=== PATIENT | female | born 1975 | race African-American/Black ===

== ENCOUNTER 2017-09-19 15:20 | Inpatient (IN) | payer OTHER ==
[2017-09-19 17:22] VITALS: BMI 20.7
--- NOTE | 2017-09-19 19:07 | HP ---
Screened but not Admitted - Documentation of Visit Screened but not Admitted: Yes Level of Care Recommended at this Time: ER Evaluation/Care Additional Information/Explanation: Patient has signs of necrosis/ frostbites on the rigth index and middle finger. Patient was send to [facility] for futher evaluation report given to Dr. Howell.
--- NOTE | 2017-09-20 00:24 | HP ---
Admission ROS [facility] Chief Complaint: Seeking admission to rehab Allergies/Adverse Reactions: Allergies Allergy/AdvReac Type Severity Reaction Status Date / Time No Known Allergies Allergy Verified 09/19/17 19:03 History of Present Illness: 42 years cocaine dependence is admitted to rehab. Patient has been in previous rehab at [facility]. She was earlier sent to [facility] ER with complaint of olsen bite to right 2nd and 3rd finger. Her right 2nd finger had necrosis extending to DIP joint with eschar at fingertip and the 3rd right digit is necrotic dry gangrene involving the PIP. Patient was seen at [facility] where they told her to return for possibly finger amputation. Patient denies past medical history and suicidal ideation at this time. Exam Limitations: Physical Impairment (right 2nd and 3rd finger frostbite) - Ebola screening Have you traveled outside of the country in the last 21 days: No (N) Have you had contact with anyone from an Ebola affected area: No Have you been sick,other than usual withdrawal symptoms: No Do you have a fever: No - Review of Systems Constitutional: No Symptoms Reported EENT: reports: No Symptoms Reported Respiratory: reports: No Symptoms reported Cardiac: reports: No Symptoms Reported GI: reports: No Symptoms Reported : reports: No Symptoms Reported Musculoskeletal: reports: No Symptoms Reported Integumentary: reports: No Symptoms Reported Neuro: reports: No Symptoms reported Endocrine: reports: No Symptoms Reported Hematology: reports: No Symptoms Reported Psychiatric: reports: Anxious Other Systems: Reviewed and Negative Patient History - Patient Medical History Hx Anemia: No Hx Asthma: No Hx Chronic Obstructive Pulmonary Disease (COPD): No Hx Cancer: No Hx Cardiac Disorders: No Hx Congestive Heart Failure: No Hx Hypertension: No Hx Hypercholesterolemia: No Hx Pacemaker: No HX Cerebrovascular Accident: No Hx Seizures: No Hx Dementia: No Hx Diabetes: No Hx Gastrointestinal Disorders: No Hx Liver Disease: No Hx Genitourinary Disorders: No Hx Sexually Transmitted Disorders: No Hx Renal Disease (ESRD): No Hx Thyroid Disease: No Hx Human Immunodeficiency Virus (HIV): No (Negative 2017) Hx Hepatitis C: No Hx Depression: No Hx Suicide Attempt: No (Denies suicidal ideation at this time) Hx Bipolar Disorder: No Hx Schizophrenia: Yes - Patient Surgical History Past Surgical History: No - PPD History Previous Implant?: Yes Documented Results: Negative w/o proof Implanted On Prior [facility] Admission?: No PPD to be Administered?: Yes - Reproductive History Patient is a Female of Child Bearing Age (11 -55 yrs old): Yes LMP comment: Patient states she cannot remember the date Patient : No - Smoking Cessation Smoking history: Current every day smoker Have you smoked in the past 12 months: Yes Aproximately how many cigarettes per day: 20 Hx Chewing Tobacco Use: No Initiated information on smoking cessation: Yes 'Breaking Loose' booklet given: 09/20/17 - Substances Abused Crack Route: Smoking Frequency: Daily Amount used: $700 Age of first use: 16 Date of Last Use: 09/18/17 Family Disease History - Family Disease History Family History: Denies Admission Physical Exam [facility] - Vital Signs Vital Signs: Vital Signs - 24 hr 09/19/17 17:16 Temperature 97.7 F Pulse Rate 108 H Respiratory 18 Rate Blood Pressure 124/92 - Physical General Appearance: Yes: Disheveled, Anxious HEENTM: Yes: EOMI, Normal ENT Inspection, Normal Voice, Other (missing upper teeth) Respiratory: Yes: Lungs Clear, Normal Breath Sounds, No Respiratory Distress Neck: Yes: Supple Breast: Yes: Breast Exam Deferred Cardiology: Yes: Regular Rhythm, Regular Rate, S1, S2 Abdominal: Yes: Normal Bowel Sounds, Soft Genitourinary: Yes: Within Normal Limits Back: Yes: Normal Inspection Musculoskeletal: Yes: Within Normal Limits Extremities: Yes: Delayed Capillary Refill, Other (olsen bite to right 2nd and 3rd digits) Neurological: Yes: Alert, Normal Mood/Affect, Normal Response Integumentary: Yes: Dry Lymphatic: Yes: Within Normal Limits - Diagnostic (1) Cocaine dependence, uncomplicated Current Visit: Yes Status: Chronic (2) Sedative, hypnotic or anxiolytic dependence with withdrawal, uncomplicated Current Visit: Yes Status: Chronic (3) Frostbite Current Visit: Yes Status: Chronic Qualifiers: Encounter type: subsequent encounter Qualified Code(s): T33.90XD - Superficial frostbite of unspecified sites, subsequent encounter Cleared for Admission [facility] - Detox or Rehab [facility] Level of Care: Observation Bed Claeared for Rehab Admission: Yes [facility] Breath Alcohol Content Breath Alcohol Content: 0 Urine Pregancy Test - Result Urine Test Results: Negative- NO Line Present Urine Drug Screen - Results Drug Screen Negative: No Urine Drug Screen Results: [place]IRAG-Cocaine, TCA-Tricyclic Antidepress Inpatient Rehab Admission - Initial Determination Are CD services needed?: Yes Free of communicable disease: Yes Not in need of hospitalization: Yes - Rehab Admission Criteria Previous failed treatment: Yes Poor recovery environment: Yes Comorbidities: Yes Lacks judgement: No Patient is meeting Inpatient Rehab admission criteria:: Yes
[2017-09-20] MEDS ORDERED: ACETAMINOPHEN 325 MG TABLET (FP) PO PRN (00:35)
[2017-09-20] MEDS ORDERED: LOPERAMIDE HCL 2 MG CAPSULE PO PRN (00:35)
[2017-09-20] MEDS ORDERED: guaiFENesin/D-METHORPHAN HB 10 ML UNIT-DOSE CUPS PO PRN (00:35)
[2017-09-20] MEDS ORDERED: MAGNESIUM CITRATE 300 ML BOTTLE PO PRN (00:35)
[2017-09-20] MEDS ORDERED: MAG HYDROX/AL HYDROX/SIMETH 30 ML UNIT-DOSE CUP PO PRN (00:35)
[2017-09-20] MEDS ORDERED: IBUPROFEN 400 MG TABLET (FP) PO PRN (00:35)
[2017-09-20] MEDS ORDERED: NICOTINE POLACRILEX 2 MG GUM BC PRN (00:35)
[2017-09-20] MEDS ORDERED: MENTHOL/PHENOL 1 EACH UD MM PRN (00:35)
[2017-09-20] MEDS ORDERED: P-EPHED 60MG/TRIPROLIDI 2.5MG TABLET PO PRN (00:35)
[2017-09-20] MEDS ORDERED: MAGNESIUM HYDROX 2400MG/30ML ORAL SUSPENSION 30 ML CUP PO PRN (00:35)
[2017-09-20] MEDS ORDERED: TUBERCULIN PPD 5 TU/0.1ML VIAL ID ONE (02:16)
--- NOTE | 2017-09-20 09:07 | EKG ---
Test Reason : Blood Pressure : / mmHG Vent. Rate : 087 BPM Atrial Rate : 087 BPM P-R Int : 164 ms QRS Dur : 092 ms QT Int : 374 ms P-R-T Axes : 076 072 061 degrees QTc Int : 450 ms NORMAL SINUS RHYTHM NORMAL ECG NO PREVIOUS ECGS AVAILABLE Confirmed by Shaan Garcia ([id number]) on 09/20/2017 9:06:46 AM Referred By: Confirmed By:Shaan Garcia
[2017-09-20] MEDS ORDERED: PT OWN MED DRAWER 7, Y5N ONE (09:38)
[2017-09-20] MEDS: PRENATAL VITAMINS W/ FOLIC ACID TABLET (FP) PO SCH (09:49)
[2017-09-20] MEDS: NICOTINE 14 MG/24 HOURS TOPICAL PATCH TD SCH (09:50)
[2017-09-20] MEDS ORDERED: BACITRACIN 15 GM TUBE TOPICAL OINTMENT TP SCH (10:00)
[2017-09-20] MEDS ORDERED: BACITRACIN 0.9 GM PACKET TP SCH (10:00)
--- NOTE | 2017-09-20 12:55 | PN ---
[facility] Progress Note (SOAP) Subjective: aaox3 right hand two digits are nacrotic and foul smelling however wound appears non purulent with clear serous sanguineous Objective: 09/20/17 12:53 labs ordered Assessment: 09/20/17 12:53 aaox3 no distress no c/o pain pt agreed to new wound care dressing, and labs ordered and pt complied with the need for blood drawn. pt agreed to unit rules. Plan: will follow up with care.
[2017-09-20] MEDS ORDERED: SILVER SULFADIAZINE 1% TOP CREAM 400 GM JAR TP SCH (13:00)
[2017-09-20] MEDS: SULFAMETHOXAZOLE/TRIMETHOPRIM 800MG/160MG D.S. TABLET PO SCH ×2 (13:15→21:15)
[2017-09-20] MEDS: SILVER SULFADIAZINE 1% TOP CREAM 50 GM JAR TP SCH (14:05)
[2017-09-20 14:23] LABS: BASO % 0.6 % (0-2.0); EOS % 3.9 % (0-4.5); HEMATOCRIT 31.8 % (32.4-45.2); HEMOGLOBIN 9.8 GM/dL (10.7-15.3); MCH 22.9 pg (25.7-33.7); MCHC 30.8 g/dl (32.0-36.0); MEAN CELL VOLUME 74.4 fl (80-96); MEAN PLT VOLUME 9.3 fl (7.5-11.1); MONO % 16.4 % (3.8-10.2); NEUT % 52.1 % (42.8-82.8); PLATELET COUNT 252 K/MM3 (134-434); RBC 4.27 M/mm3 (3.60-5.2); RDW 14.6 % (11.6-15.6); WHITE BLOOD COUNT 7.2 K/mm3 (4.0-10.0)
[2017-09-20 14:50] LABS: ANION GAP 6 (8-16); BLOOD UREA NITROGEN 12 mg/dL (7-18); CALCIUM 8.9 mg/dL (8.5-10.1); CHLORIDE 105 mmol/L (98-107); CO2 33 mmol/L (21-32); CREATININE 0.7 mg/dL (0.55-1.02); GLUCOSE,RANDOM 109 mg/dL (74-106); POTASSIUM 4.4 mmol/L (3.5-5.1); SGOT/AST 19 U/L (15-37); SGPT/ALT 20 U/L (12-78); SODIUM 144 mmol/L (136-145)
[2017-09-20 14:52] LABS: ALK PHOS 56 U/L (45-117); BILIRUBIN,TOTAL 0.3 mg/dL (0.2-1.0); TOT PROT 6.8 g/dl (6.4-8.2)
[2017-09-20 17:06] LABS: URINE APPEARANCE CLEAR; URINE BILIRUBIN NEGATIVE (NEGATIVE); URINE BLOOD NEGATIVE (NEGATIVE); URINE COLOR YELLOW; URINE GLUCOSE (UA) NEGATIVE (NEGATIVE); URINE KETONE NEGATIVE (NEGATIVE); URINE LEUK ESTERASE NEGATIVE (NEGATIVE); URINE NITRITE NEGATIVE (NEGATIVE); URINE PROTEIN NEGATIVE (NEGATIVE); URINE UROBILINOGEN NEGATIVE mg/dL (0.2-1.0)
[2017-09-20 17:39] LABS: SICKLE CELL SCREEN NEGATIVE (NEGATIVE)
[2017-09-20] MEDS ORDERED: THIAMINE HCL 100 MG TABLET (FP) PO SCH (22:00)
[2017-09-21] MEDS: SULFAMETHOXAZOLE/TRIMETHOPRIM 800MG/160MG D.S. TABLET PO SCH (10:13)
[2017-09-21] MEDS: PRENATAL VITAMINS W/ FOLIC ACID TABLET (FP) PO SCH (10:13)
[2017-09-21] MEDS: NICOTINE 14 MG/24 HOURS TOPICAL PATCH TD SCH (10:14)
[2017-09-21] MEDS: SILVER SULFADIAZINE 1% TOP CREAM 50 GM JAR TP SCH (10:14)
--- NOTE | 2017-09-21 10:19 | PN ---
[facility] Progress Note (SOAP) Subjective: pt c/o of her necrotic finger is slothing off and detaching itself. Objective: 09/21/17 10:17 Laboratory Tests 09/20/17 09/20/17 09/20/17 11:55 11:55 11:55 WBC 7.2 RBC 4.27 Hgb 9.8 L Hct 31.8 L MCV 74.4 L MCH 22.9 L MCHC 30.8 L RDW 14.6 Plt Count 252 MPV 9.3 Neutrophils % 52.1 Lymphocytes % 27.0 Monocytes % 16.4 H Eosinophils % 3.9 Basophils % 0.6 Sickle Cell Screen Negative Sodium 144 Potassium 4.4 Chloride 105 Carbon Dioxide 33 H Anion Gap 6 L BUN 12 Creatinine 0.7 Creat Clearance w eGFR > 60 Random Glucose 109 H Calcium 8.9 Total Bilirubin 0.3 AST 19 ALT 20 Alkaline Phosphatase 56 Total Protein 6.8 Albumin 3.0 L Urine Color Urine Appearance Urine pH Ur Specific [place] Urine Protein Urine Glucose (UA) Urine Ketones Urine Blood Urine Nitrite Urine Bilirubin Urine Urobilinogen Ur Leukocyte Esterase RPR Titer Hepatitis C Antibody <0.1 HIV 1&2 Antibody Screen HIV P24 Antigen 09/20/17 09/20/17 09/20/17 11:55 11:55 13:15 WBC RBC Hgb Hct MCV MCH MCHC RDW Plt Count MPV Neutrophils % Lymphocytes % Monocytes % Eosinophils % Basophils % Sickle Cell Screen Sodium Potassium Chloride Carbon Dioxide Anion Gap BUN Creatinine Creat Clearance w eGFR Random Glucose Calcium Total Bilirubin AST ALT Alkaline Phosphatase Total Protein Albumin Urine Color Yellow Urine Appearance Clear Urine pH 6.0 Ur Specific [place] 1.020 Urine Protein Negative Urine Glucose (UA) Negative Urine Ketones Negative Urine Blood Negative Urine Nitrite Negative Urine Bilirubin Negative Urine Urobilinogen Negative Ur Leukocyte Esterase Negative RPR Titer Nonreactive Hepatitis C Antibody HIV 1&2 Antibody Screen Negative HIV P24 Antigen Negative aaox3 ambulating no acute distress Assessment: 09/21/17 10:17 necrotic finger is slothing off, pt c/o of no pain. pt has agreed to go to [place] ED for evaluation and possible surgical removal of digit. Plan: report given to MEGAN Cunningham and will accept pt for evaluation of necrotic digit.
[2017-09-21 10:54] VITALS: BP 111/67; PULSE 84; TEMP 98.2
--- NOTE | 2017-09-21 13:27 | PN ---
[facility] Progress Note Note: Patient was transferred to ER of [facility] after being evaluated by Ryne Escobra NP due to R index gangrene for further stabilization,surgical intervention.See staff notes for details.
--- NOTE | 2017-09-21 14:18 | CONSULT ---
Consult Consult Specialty:: hand surgery Referred by:: porfirio GUZMAN - ED Reason for Consultation:: right hand multifinger gangrene - History of Present Illness Chief Complaint: right hand fingers frostbite History of Present Illness: 42yo RHD female with PMH cocaine abuse presents to ED 4 days after her admission to rehab. She was previous rehab at [facility]. She was earlier sent to [facility] ER with complaint of olsen bite to right 2nd and 3rd finger. Her right 2nd finger had necrosis extending to DIP joint with eschar at fingertip and the 3rd right digit is necrotic dry gangrene involving the PIP. Patient was seen at [facility] where they told her to return for possibly finger amputation. Patient denies past medical history and suicidal ideation at this time. We were asked to assess her. - History Source History Provided By: Patient Limitations to Obtaining History: No Limitations - Past Medical History ...LMP: 08/25/17 ...LMP Comment: Patient states she cannot remember the date ...: No - Alcohol/Substance Use Hx Alcohol Use: Yes (BEER DAILY) History of Substance Use: reports: Cocaine - Smoking History Smoking history: Current every day smoker Have you smoked in the past 12 months: Yes Aproximately how many cigarettes per day: 20 - Social History Place of : [place] History of Recent Travel: No Home Medications - Allergies Allergies/Adverse Reactions: Allergies Allergy/AdvReac Type Severity Reaction Status Date / Time carbamazepine [From Tegretol] Allergy Verified 09/21/17 12:04 haloperidol [From Haldol] Allergy Verified 09/21/17 12:04 - Home Medications Home Medications: Ambulatory Orders Benztropine Mesylate [Cogentin] 1 mg PO BID 09/20/17 Diphenhydramine [Benadryl -] 50 mg PO HS 09/20/17 Fluphenazine HCl [Prolixin -] 5 mg PO BID 09/20/17 Review of Systems - Review of Systems Constitutional: denies: Chills, Fever Eyes: denies: Blind Spots, Recent Change in Vision HENT: denies: Difficult Swallowing, Throat Pain Neck: denies: Lumps, Stiffness Cardiovascular: denies: Chest Pain, Palpitations Respiratory: denies: Cough, SOB Gastrointestinal: denies: Abdominal Pain, Constipation, Diarrhea Genitourinary: denies: Discharge, Dysuria Musculoskeletal: reports: Extremity Pain (right hand). denies: Joint Pain, Joint Swelling Integumentary: denies: Rash Neurological: denies: Change in LOC, Syncope Endocrine: denies: Unexplained Weight Gain, Unexplained Weight Loss Hematology/Lymphatic: denies: Easily Bruised, Excessive Bleeding Psychiatric: denies: Anxiety, Depression Physical Exam Vital Signs: Vital Signs Temperature 98.2 F 09/21/17 10:54 Pulse Rate 84 09/21/17 10:54 Respiratory Rate 18 09/21/17 10:54 Blood Pressure 111/67 09/21/17 10:54 O2 Sat by Pulse Oximetry (%) Constitutional: Yes: No Distress, Calm, Poor Hygeine, Thin Eyes: Yes: Conjunctiva Clear, EOM Intact HENT: Yes: Atraumatic, Normocephalic Neck: Yes: Supple, Trachea Midline Cardiovascular: Yes: Regular Rate and Rhythm, S1, S2 Respiratory: Yes: Regular, CTA Bilaterally Gastrointestinal: Yes: Normal Bowel Sounds, Soft. No: Tenderness ...Rectal Exam: No: Deferred Renal/: No: CVA Tenderness - Left, CVA Tenderness - Right Extremities: Yes: Amputation (auto amputation of right index finger), Cyanosis, Other (right hand dry grangrene of index finger to PIP joint, middle wet gangrene to PIP joint) Edema: Yes (right middle finger) Integumentary: No: Jaundice, Rash Neurological: Yes: Alert, Oriented Psychiatric: Yes: Alert, Oriented Labs: CBC, BMP 09/20/17 11:55 09/20/17 11:55 Imaging - Results X-ray: Pending Problem List - Problems (1) Gangrene of finger of right hand Assessment/Plan: 42yo RHD female with right index and middle finger gangrene secondary to frostbite. Medical admission and management NPO and IVF hydration IV antibiotics adequate analgesia Urgent Revision amputation of right index and middle fingers - Discussed with patient risks, benefits and alternatives of proposed procedures, including but not limited to bleeding, infection, disfigurement, loss of function and dexterity, injury to adjacent structures, abscess, need for further procedures, sepsis and ; alternatives include antibiotics, delayed or no surgery - risks of this include failure of nonoperative therapy, loss of function and dexterity, sepsis, recurrence, . Patient desires to proceed with operation - will take to OR for above. Informed consent signed for same. Code(s): I96 - GANGRENE, NOT ELSEWHERE CLASSIFIED (2) Autoamputation of toe or finger Code(s): L94.6 - AINHUM (3) Frostbite Code(s): T33.90XA - SUPERFICIAL FROSTBITE OF UNSPECIFIED SITES, INIT ENCNTR Qualifiers: Encounter type: sequela Qualified Code(s): T33.90XS - Superficial frostbite of unspecified sites, sequela (4) Cocaine dependence, uncomplicated Code(s): F14.20 - COCAINE DEPENDENCE, UNCOMPLICATED
[2017-09-21] MEDS ORDERED: AMPICILLIN NA/SULBACTAM NA 1.5 GM in SODIUM CHLORIDE 100 ML IVPB ONE (14:27)
[2017-09-21] MEDS ORDERED: FOLIC ACID INJECTION - 1 MG, THIAMINE HCL 100 MG, MULTIVIT INJECTION ADULT 10 ML in SOD... IVPB ONE (14:30)
[2017-09-21] MEDS ORDERED: LACTATED RINGERS SOLUTION 1,000 ML/1,000 ML INFUS.BAG IV SCH (14:45)
[2017-09-21] MEDS ORDERED: VANCOMYCIN 1,000 MG in DEXTROSE 5%-WATER - 250 ML IVPB SCH (22:00)
== END 2017-09-21 11:33 | disposition short-term general hospital (02) | DRG 772 ==
LOC: YASAS 15:20 → Y3E 09-20 01:41
PROVIDERS: ADMIT Psychiatry & Neurology Psychiatry; ATTEND Nurse Practitioner Acute Care
PROC: HZ42ZZZ Group Counseling for Substance Abuse Treatment, Cognitive-Behavioral (ICD-10-PCS; principal; 2017-09-20)
DX: F13.20 Sedative, hypnotic or anxiolytic dependence, uncomplicated (principal); F14.20 Cocaine dependence, uncomplicated; T33.531S Superficial frostbite of right finger(s), sequela; T69 Other effects of reduced temperature; X31.XXXS Exposure to excessive natural cold, sequela; Z59.0 Homelessness
CPT/HCPCS: 36415; 80053; 81003; 85025; 85660; 86593; 86803; 87389; 93005; 93010

== ENCOUNTER 2017-09-19 20:15 | Emergency (ER) | payer OTHER ==
--- NOTE | 2017-09-19 20:49 | PDOC ---
Rapid Medical Evaluation Time Seen by Provider: 09/19/17 20:46 Medical Evaluation: Allergies Allergy/AdvReac Type Severity Reaction Status Date / Time No Known Allergies Allergy Verified 09/19/17 19:03 09/19/17 20:46 The patient presents with a chief complaint of: Lopez bite to R hand for one month. Seen in [facility] for same. Pain to R 2nd and 3rd fingers. From Rehab started today. I have performed a brief in-person evaluation of this patient; Pertinent physical exam findings: in wheel, in no respiratory distress. R2nd and 3rd finger with poor perfusion, frostbitten. I have ordered the following: Hand x-ray. Pt. refusing lab work The patient will proceed to the ED for further evaluation.
[2017-09-19 20:51] VITALS: BP 115/75; PULSE 105; TEMP 99.7; BMI 25.0
--- NOTE | 2017-09-19 21:24 | PDOC ---
History of Present Illness <Shana Kong - Last Filed: 09/19/17 21:26> - General History Source: Patient Exam Limitations: No Limitations - History of Present Illness Initial Comments: 09/19/17 21:40 The patient is a 42 year old female with a significant PMH of crack-cocaine and alcohol abuse who presents to the emergency department from [facility] for evaluation of frostbite to the right hand for one month. The patient presents with black, olsen-bitten 2nd and 3rd right digits with no dressings. As per triage, the patient developed her frostbite about one month ago and was seen in [place] and [facility] for the same complaint. She reports being last seen in [place] about 2 days ago. The patient has no other complaints. Allergies: NKA Past surgical history: None reported. Social history: Daily crack-cocaine use. Daily alcohol use. No reported PCP: None reported. <Inocencio Kelly - Last Filed: 09/19/17 21:40> - General Chief Complaint: Olsen Bite Stated Complaint: FROSTBITE Time Seen by Provider: 09/19/17 20:46 Past History - Suicide/Smoking/Psychosocial Hx Smoking History: Current every day smoker Number of Cigarettes Smoked Daily: 20 Information on smoking cessation initiated: No Hx Alcohol Use: Yes (BEER DAILY) Drug/Substance Use Hx: Yes (CRACK COCAINE EVERY DAY) <Shana Kong - Last Filed: 09/19/17 21:26> <Inocencio Kelly - Last Filed: 09/19/17 21:40> - Past Medical History Allergies/Adverse Reactions: Allergies Allergy/AdvReac Type Severity Reaction Status Date / Time No Known Allergies Allergy Verified 09/19/17 19:03 Home Medications: Ambulatory Orders NK [No Known Home Medication] 09/19/17 Review of Systems - Review of Systems Able to Perform ROS?: Yes Comments:: 09/19/17 21:40 GENERAL/CONSTITUTIONAL: No fever or chills. No weakness. HEAD, EYES, EARS, NOSE AND THROAT: No change in vision. No ear pain or discharge. No sore throat. CARDIOVASCULAR: No chest pain or shortness of breath. RESPIRATORY: No cough, wheezing, or hemoptysis. GASTROINTESTINAL: No nausea, vomiting, diarrhea or constipation. GENITOURINARY: No dysuria, frequency, or change in urination. MUSCULOSKELETAL: No joint or muscle swelling or pain. No neck or back pain. SKIN: (+) Blackened right 2nd and 3rd digits. NEUROLOGIC: No headache, vertigo, loss of consciousness, or change in strength/ sensation. ENDOCRINE: No increased thirst. No abnormal weight change. HEMATOLOGIC/LYMPHATIC: No anemia, easy bleeding, or history of blood clots. ALLERGIC/IMMUNOLOGIC: No hives or skin allergy. <Inocencio Kelly - Last Filed: 09/19/17 21:40> *Physical Exam - Vital Signs Last Vital Signs Temp Pulse Resp BP Pulse Ox 99.7 F H 105 H 16 115/75 99 09/19/17 20:47 09/19/17 20:47 09/19/17 20:47 09/19/17 20:47 09/19/17 20:47 <Shana Kong - Last Filed: 09/19/17 21:26> - Vital Signs Last Vital Signs Temp Pulse Resp BP Pulse Ox 99.7 F H 105 H 16 115/75 99 09/19/17 20:47 09/19/17 20:47 09/19/17 20:47 09/19/17 20:47 09/19/17 20:47 - Physical Exam Comments: 09/19/17 21:40 GENERAL: Awake, alert, and fully oriented, in no acute distress HEAD: No signs of trauma EYES: PERRLA, EOMI, sclera anicteric, conjunctiva clear ENT: Auricles normal inspection, hearing grossly normal, nares patent, oropharynx clear without exudates. Moist mucosa NECK: Normal ROM, supple, no lymphadenopathy, JVD, or masses LUNGS: Breath sounds equal, clear to auscultation bilaterally. No wheezes, and no crackles HEART: Regular rate and rhythm, normal S1 and S2, no murmurs, rubs or gallops ABDOMEN: Soft, nontender, normoactive bowel sounds. No guarding, no rebound. No masses EXTREMITIES: (+) 3rd right digit necrotic with dry gangrene involving the PIP joint. (+) 2nd right digit evidence of necrosis extending to just past the DIP joint with an eschar at the fingertip. Normal range of motion, no edema. No clubbing or cyanosis. No cords, erythema, or tenderness NEUROLOGICAL: Cranial nerves II through XII grossly intact. Normal speech. SKIN: Warm, Dry, normal turgor, no rashes or lesions noted. <Inocencio Kelly - Last Filed: 09/19/17 21:40> Medical Decision Making - Medical Decision Making 09/19/17 21:26 Pt presents to the ED complaining of frostbite to the second and third digits of her R hand. Patient reports that the injury occurred a month ago, and that she was evaluated at [place] for this complaint. PAtient has been followed as an outpatient in [place]. Last seen 2 days ago, and told that there was nothing else to do acutely and that she should return in several months for evaluation for possible finger amputation. Denies fevers, nausea and vomiting. Denies increased discharge or pain in her fingers. Given that this is a chronic issue, I feel that it is safe to discharge the patient back to rehab. Patient should return to the ED for fever , worsening pain, redness of swelling of other fingers or the hand. I offered to dress the patient's fingers with bacitracin and a sterile gauze, dressing, but she refuses, stating that the bacitracin " peres" and that she would take it off if I dressed her fingers. I explained to her at length that dressings would help prevent superinfection and she still refused. 09/19/17 21:33 09/19/17 21:36 <Shana Kong - Last Filed: 09/19/17 21:26> *DC/Admit/Observation/Transfer - Discharge Dispostion Admit: No <Shana Kong - Last Filed: 09/19/17 21:26> - Attestations Scribe Attestion: 09/19/17 21:40 Documentation prepared by Inocencio Kelly, acting as medical claims representative for Shana Kong MD. <Inocencio Kelly - Last Filed: 09/19/17 21:40> Diagnosis at time of Disposition: Frostbite Qualifiers: Encounter type: subsequent encounter Qualified Code(s): T33.90XD - Superficial frostbite of unspecified sites, subsequent encounter - Discharge Dispostion Disposition: HOME Condition at time of disposition: Good - Patient Instructions Printed Discharge Instructions: DI for Frostbite Additional Instructions: return to the ED for fever, spreading redness or warmth, worsening pain, nausea , vomiting or diarrhea.
[2017-09-19] MEDS ORDERED: BACITRACIN 15 GM TUBE TOPICAL OINTMENT TP SCH (22:00)
== END 2017-09-19 23:50 | disposition home or self-care (01) ==
LOC: JER 20:15
DX: T33.531A Superficial frostbite of right finger(s), initial encounter (principal); T69.8XXA Other specified effects of reduced temperature, initial encounter; X31.XXXA Exposure to excessive natural cold, initial encounter; Y93.89 Activity, other specified; Y92.89 Other specified places as the place of occurrence of the external cause; Y99.8 Other external cause status; Z59.0 Homelessness
CPT/HCPCS: 99281-25